=== PATIENT | male | born 1955 | race African-American/Black ===

== ENCOUNTER 2018-02-18 07:59 | Observation (INO) | payer BC, OTHER ==
[~2018-02-18] VITALS: Ht 175.3 cm; Wt 108.4 kg
[2018-02-18] VITALS (13 sets, daily range): BP systolic 130–160; BP diastolic 45–89
[2018-02-18 08:48] LABS: HEMATOCRIT 44.8 % (42.0-52.0); HEMOGLOBIN 14.9 gm/dL (14.0-18.0); MCH 29.6 pg (26.0-34.0); MCHC 33.3 g/dL (28.0-37.0); MCV 88.9 fL (80.0-100.0); MPV 8.8 fl. (7.2-11.1); RBC 5.04 mil/uL (4.50-6.00); RDW-CV 13.7 % (10.5-14.5); WBC 7.1 thou/uL (4.0-11.0)
[2018-02-18] MEDS ORDERED: NORVASC5 MG PO (08:52)
[2018-02-18] MEDS ORDERED: ADULT ASPIRIN81 MG PO (08:52)
[2018-02-18] MEDS ORDERED: ACCUNEB SO1.25 MG/1 INH (08:52)
[2018-02-18] MEDS ORDERED: MAXZIDE-25 MG1 EACH PO (08:53)
[2018-02-18] MEDS ORDERED: CRESTOR20 MG PO (08:53)
[2018-02-18] MEDS ORDERED: NORCO 5-325 TA1 EACH PO (08:53)
[2018-02-18 09:03] LABS: APTT 26.1 Seconds (25.0-31.3); PROTIME 10.4 Seconds (9.20-11.50)
[2018-02-18 09:04] LABS: ANION GAP 8 mmol/L (7-16); BUN 17 mg/dL (7-18); CHLORIDE 99 mmol/L (98-107); CO2 29 mmol/L (21-32); CREATININE 1.1 mg/dL (0.6-1.3); GLUCOSE 178 mg/dL (70-99); POTASSIUM 3.7 mmol/L (3.5-5.1); SODIUM 136 mmol/L (136-145)
[2018-02-18 09:08] LABS: ALBUMIN 4.3 g/dL (3.4-5.0); ALKALINE PHOSPHATASE 61 U/L (46-116); SGOT 20 U/L (15-37); SGPT 36 U/L (30-65); TOTAL BILIRUBIN 0.6 mg/dL (<0.1-1.0); TOTAL PROTEIN 8.3 g/dL (6.4-8.2)
[2018-02-18 09:19] LABS: CHOLESTEROL 175 mg/dL (<200); SERUM ASSESSMENT Clear; TRIGLYCERIDE 79 mg/dL (<150); VLDL 16 mg/dL (<40)
[2018-02-18 09:20] LABS: HDL CHOLESTEROL 43 mg/dL (>40); LDL CHOLESTEROL 117 mg/dL (<100); TC:HDL 4.1 Ratio (Not establshd)
--- NOTE | 2018-02-18 11:56 | EKG ---
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 02/18/18 1156 0858 John Lin MD, [facility] /EPI
--- NOTE | 2018-02-18 15:33 | EKG ---
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1955 Requested By: John Lin Order Number: [id number] Reading MD: John Lin Measurements Intervals [place] Rate: 70 P: 28 IA: 142 QRS: 66 QRSD: 88 T: -59 QT: 384 QTc: 415 Interpretive Statements Sinus rhythm Nonspecific T abnormalities, diffuse leads Compared to ECG 02/18/2018 08:58:26 T-wave abnormality now present Ventricular premature complex(es) no longer present Myocardial infarct finding no longer present Electronically Signed On 02-18-2018 15:33:24 CDT by John Lin [email or web address] <ELECTRONICALLY SIGNED> By: John Lin MD, FAC 02/18/18 1533 1413 1413 John Lin MD, FAC /EPI
--- NOTE | 2018-02-18 17:27 | CARD ---
[address] [address] CARDIAC CATH REPORT Name: YANIRA WICK Room: [address] Michel Smith#: [id number] Admission: 02/18/18 Attend Phys: John Lin MD Discharge: Date of : 53 Report #: [id number] THIS REPORT FOR: //name// APPROVED REPORT Study performed: 02/18/2018 08:59:48 Patient Details Patient Status: Out-Patient Room #: 208 The patient is a 62 year-old male Event Personnel John Lin Utility Operator, Shanda Rock Monitor, Telly Painting Scrub, Kadi Felipe RTHua Scrub, Corinne Durán RN Retail Project Merchandiser, Peter Vaca Supervisor Show Operations Procedures Performed Art Access - R radial artery , Left Heart Catheterization, Selective Right and Left Coronary Angiography, PTCA with Stenting Indication Dyspnea, Positive stress test Risk Factors Arterial Hypertension, Hypercholesterolemia Admission/Lab Medications/Medications given during procedure Heparin Unfract. Procedure Narrative The patient was brought electively to the Cardiac Catheterization Laboratory and was prepped and draped in a sterile manner. The right wrist was infiltrated with 2% Lidocaine subcutaneous anesthesia. A Slender Glidesheath sheath was inserted into the right radial artery. Coronary angiography was performed using coronary diagnostic catheters. The right coronary system was accessed and visualized with a 3DRC 6fr catheter. The left coronary system was accessed and visualized with a AL2 6fr catheter. Left ventricular/Aortic Valve gradient assessed via catheter pullback. Closure device was deployed with a 6 Fr Angioseal STS 6Fr. The patient tolerated the procedure well and there were no complications associated with the procedure. There was no hematoma. Due to the difficulty seating the catheters radialy the groin was accessed with a 6fr [place] sheath. The intervention was performed from the [facility]. Closed with [place] 6[place] [address] CARDIAC CATH REPORT Name: YANIRA WICK Room: [address] M..#: [id number] Admission: 02/18/18 Attend Phys: John Lin MD Discharge: Date of : 53 Report #: [id number] Angioseal. Intraoperative Conscious Sedation Sedation start time: 10:23 Case end Time: 12:30 Fentanyl 75 mcg Versed 4 mg Fluoro Time: 36.3 minutes Dose: DAP 350439 cGycm2 4322.18 mGy Contrast Type and Amount: Omnipaque 260 ml Coronary Angiography The patient's coronary anatomy is co- dominant. Diagnostic Cath Left Main normal LAD Proximal to mid 75% , mid 75% stenoses. Diagonal 1 small vessel 70% mid body Circumflex large vessel mid 85% stenosis,focal, involving medium sized OM OM1 small, ostial 90% OM2 medium ,ostial 60-70% OM3 large, mild 20% Right Coronary small artery, occluded mid body, collateralized from left R PDA small severe diffuse disease Left Ventriculography Left Ventriculography was not performed. Ejection Fraction was 50% based off patient's Nuclear Cardiac Stress Test. No gradient on pullback, EDP 12mmHg. Hemodynamics The aortic pressure is 100/67 mmHg with a mean of mmHg. The left ventricular pressure is 117/10 mmHg with a mean of mmHg. The left ventricular end diastolic pressure is 12 mmHg. There was no gradient across the aortic valve upon pullback. Pullback from the left ventricle to the aorta revealed no gradient across the aortic valve. PCI Technique Lesion Anticoagulation was achieved with Heparin. Patient was preloaded with Brillinta. Percutaneous coronary intervention was performed on the mid left anterior descending artery segment. The lesion stenosis prior to intervention was 80%% with DOMINICK 3 flow. A 6F XB 4.0 Guide Catheter was used to engage the LCA ostium. A IG: [facility] 190[place] [address] CARDIAC CATH REPORT Name: YANIRA WICK Room: [address] M.R.#: [id number] Admission: 02/18/18 Attend Phys: John Lin MD Discharge: Date of : 53 Report #: [id number] Interventional Guidewire was used to cross the lesion. BALLOON DILATION A Balloon catheter Trek RX 2.5 X 12 was inserted and inflated up to 10.00atm for 9seconds. Repeat angiography revealed the following post-dilatation results: 40% stenosis. STENT DEPLOYMENT A drug-eluting stent Xience Alpine RX 2.75X18 was inserted and inflated up to 10.00atm for 8seconds. Repeat angiography revealed the following post-stent deployment results: 0% stenosis. Additional Inflation: 12.00atm for 8seconds. Additional Inflation: 16.00atm for 13seconds. Final angiography reveals 0 % stenosis with DOMINICK 3 flow. PCI Technique Lesion 2 Percutaneous Coronary Intervention was performed on the proximal left anterior descending artery segment. Patient was preloaded with Brillinta. Percutaneous coronary intervention was performed on the proximal left anterior descending artery segment. The lesion stenosis prior to intervention was 70% with DOMINICK 3 flow. A 6F XB 4.0 Guide Catheter was used to engage the LCA ostium. A bmw Interventional Guidewire was used to cross the lesion. Stent Deployment A drug-eluting stent Xience Alpine RX 3.5X12 was inserted and inflated up to 9.00atm for 13seconds. Repeat angiography revealed the following post-stent deployment results: 0% stenosis. Additional Inflation: 14.00atm for 16seconds. Additional Inflation: 16.00atm for 11seconds. Final angiography reveals 0 % stenosis with DOMINICK 3 flow. PCI Technique Lesion 3 Percutaneous Coronary Intervention was performed on the mid circumflex artery segment. Patient was preloaded with Brillinta. Percutaneous coronary intervention was performed on the mid circumflex artery segment. The lesion stenosis prior to intervention was 70% with DOMINICK 3 flow. A 6F XB 4.0 Guide Catheter was used to engage the ostium. A IG: [employer] 190cm Interventional Guidewire was used to cross the lesion. Stent Deployment A drug-eluting stent Xience Alpine RX 4.0X12 was inserted and inflated up to 14.00atm for 19seconds. Repeat angiography revealed [facility] [address] [place] [address] CARDIAC CATH REPORT Name: YANIRA WICK Room: [address] Michel CatesWard#: [id number] Admission: 02/18/18 Attend Phys: John Lin MD Discharge: Date of : 53 Report #: [id number] the following post-stent deployment results: 0% stenosis. Additional Inflation: 17.00atm for 16seconds. Additional Inflation: 18.00atm for 9seconds. Post stent angiogram revealed narrowing of ostium of 3rd marginal branch that arose from within the stent consistent with plaque shift. Post Stent Deployment Balloon Dilation A Balloon catheter 2.0 x 8 mm was inserted and inflated up to 16atm for 15seconds. Repeat angiography revealed the following post-dilatation results: 0% stenosis. Final angiography reveals 0 % stenosis with DOMINICK 3 flow. Conclusion 1. Severe 3v CAD 2. Small RCA is occluded and collateralized 3. LAD has 2 serial >75% stenoses 4. LCx has focal 85% stenosis at takeoff of 3rd marginal branch 5. successful placement of drug eluting stents in the proximal lad, mid lad, and mid circumflex artery 6. plaque shift required PTCA of the ostium of the marginal branch through the circumflex stent struts Recommendations Cardiac Rehabilitation Referral Aggressive Medical Therapy Medications Administered Ticagrelor Diagnostic Cath Approved by: John Lin MD Date/Time: <ELECTRONICALLY SIGNED> By: Peter Vaca MD, [facility] 02/18/181726 26 26Peter Vaca MD, FACC /INF
[2018-02-19 00:58] VITALS: BP 137/77
[2018-02-19 03:56] VITALS: BP 123/70
[2018-02-19 05:30] LABS: HEMATOCRIT 38.1 % (42.0-52.0); MCH 29.7 pg (26.0-34.0); MCV 87.4 fL (80.0-100.0); MPV 8.8 fl. (7.2-11.1); RBC 4.35 mil/uL (4.50-6.00); RDW-CV 13.8 % (10.5-14.5); WBC 7.5 thou/uL (4.0-11.0)
[2018-02-19 05:39] LABS: HEMOGLOBIN 12.9 gm/dL (14.0-18.0)
[2018-02-19 06:12] LABS: ANION GAP 9 mmol/L (7-16); BUN 16 mg/dL (7-18); CALCIUM 8.6 mg/dL (8.5-10.1); CHLORIDE 102 mmol/L (98-107); CO2 27 mmol/L (21-32); CREATININE 1.1 mg/dL (0.6-1.3); GLUCOSE 149 mg/dL (70-99); POTASSIUM 3.8 mmol/L (3.5-5.1); SODIUM 138 mmol/L (136-145); TROPONIN-I LEVEL <0.06 ng/mL (<0.06)
[2018-02-19 08:00] VITALS: BP 132/81
--- NOTE | 2018-02-19 10:18 | EKG ---
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: : 1955 Requested By: John Lin Order Number: [id number] Reading MD: Peter Vaca Measurements Intervals [place] Rate: 74 P: 17 VT: 138 QRS: 61 QRSD: 93 T: -74 QT: 379 QTc: 421 Interpretive Statements Sinus rhythm Inferior infarct, age indeterminate Lateral leads are also involved Compared to ECG 02/18/2018 14:13:40 no change Electronically Signed On 02-19-2018 10:18:29 CDT by Peter Vaca [email or web address] <ELECTRONICALLY SIGNED> By: Peter Vaca MD, [facility] 02/19/18 1018 1 1 Peter Vaca MD, [facility] /EPI
[2018-02-19 12:11] VITALS: BP 140/67
[2018-02-19 12:36] VITALS: BP 153/85
[2018-02-19] MEDS ORDERED: BRILINTA90 MG PO (15:13)
[2018-02-19] MEDS ORDERED: NITROGLYCERIN0.4 MG SUBLING (15:21)
[2018-02-19] MEDS ORDERED: DYAZIDE 37.5-21 EACH PO (15:22)
--- NOTE | 2018-02-23 15:12 | SHORT ---
[address] [address] SHORT STAY SUMMARY Name: YANIRA WICK Room: [address] Michel Smith#: [id number] Admission: 02/18/18 Attend Phys: John Lin MD Discharge: 02/19/18 Date of : 53 Report #: [id number] THIS REPORT FOR: //name// CC: [facility] physician/PCP John Shetty MD DATE OF SERVICE: 02/19/2018 DISCHARGE DIAGNOSES: 1. Coronary artery disease. 2. Hypertension. 3. Hyperlipidemia. CONSULTANTS: None. PROCEDURES: Left heart catheterization with placement of drug-eluting stents in the LAD and circumflex artery via the femoral approach. HISTORY OF PRESENT ILLNESS: The patient is a 62-year-old black male who was brought to the outpatient department to undergo cardiac catheterization. The patient had no previous history of heart disease. Recently, he went in for his routine physical. He did note some shortness of breath. He had 1 episode of chest tightness. He was noted to have an abnormal ECG and his primary care physician ordered a nuclear stress test. This showed a fixed inferior defect. Echocardiogram apparently showed normal left ventricular function. He was referred to my partner, Dr. Lin in the Cardiology Clinic in [facility]. Because of risk factors and abnormal nuclear stress test, Dr. Lin recommended cardiac catheterization. PAST MEDICAL HISTORY: Otherwise significant for carpal tunnel surgery, hypertension, hyperlipidemia. MEDICATIONS ON ADMISSION: Included ProAir inhaler for asthma, amlodipine 5 mg a day for hypertension, aspirin 81 mg a day. He was recently switched from Lipitor to Crestor and he takes Maxzide. ALLERGIES: He has no known drug allergies. PHYSICAL EXAMINATION: GENERAL: Revealed a middle-aged black male. VITAL SIGNS: Blood pressure 140/80, pulse 80. CHEST: Clear to auscultation. CARDIAC: Regular rate and rhythm. EXTREMITIES: No edema. SKIN: [place] [address] SHORT STAY SUMMARY Name: YANIRA WICK [address] [id number] Admission: 02/18/18 Attend Phys: John Lin MD Discharge: 02/19/18 Date of : 53 Report #: [id number] His ECG showed a sinus rhythm, occasional PVC, small inferior Q-waves, nonspecific T-wave changes. LABORATORY WORK: Sodium 138, creatinine 1.1, glucose 149. His cholesterol 175, triglycerides 79, HDL 43, LDL 117. White blood cell count 7.1, hemoglobin 14.9. HOSPITAL COURSE: The patient was brought to the outpatient department. He underwent a coronary angiography by my partner, Dr. Lin from the right radial artery. He was noted to have a tortuous aorta and the angiogram from the right radial artery was difficult. He was found to have chronic occlusion of the right coronary artery that filled by collaterals. There was a 70% narrowing of the proximal LAD, 80% narrowing of the mid LAD. The mid circumflex had a discrete 70% stenosis at the takeoff of the third marginal branch. No ventriculogram was performed. He was given heparin and loaded with Brilinta. I then placed drug-eluting stents in the proximal LAD, mid LAD and mid circumflex. I did have to perform balloon angioplasty of the third marginal branch through the stent because of plaque shift. He tolerated the procedure well and a Vasc band was placed over the right radial artery. The stents were placed on the right femoral artery because of tortuosity of the aorta. He had an Angio-Seal placed in the right femoral artery. Prior to discharge, his family had no further complaints. There was no hematoma in the wrist or the right femoral artery. DISCHARGE MEDICATIONS: He was discharged on his home medications that consisted of albuterol inhaler, amlodipine 5 mg a day, aspirin 81 mg a day, Crestor 20 mg a day, Dyazide 1 a day. In addition, he was started on Brilinta 90 mg twice a day and he was given nitroglycerin to take as needed for chest pain. He was discharged to return to care of Dr. Shetty for routine medical care. He is scheduled to return to see my partner, Dr. Lin in the Cardiology Clinic in 6 weeks. He is felt to have a good prognosis from cardiac standpoint. The results of the hospitalization were discussed with the patient. He is felt to have severe multivessel coronary artery disease, but really no history of angina. I did recommend he start an exercise program, maintain a low-fat diet. In addition, he appears to have glucose intolerance. <ELECTRONICALLY SIGNED> By: Peter Vaca MD, [facility] 02/23/18 1512 1505 1530Damaryan Vaca MD, FAC /nt
== END 2018-02-19 15:30 | disposition home or self-care (01) ==
LOC: M.CL 07:59 → M.2W 13:25 → M.TBA-CV 13:25 → M.2W 13:29
PROVIDERS: ADMIT Internal Medicine Cardiovascular Disease
DX: I25.10 Atherosclerotic heart disease of native coronary artery without angina pectoris (principal); I10 Essential (primary) hypertension; E78.5 Hyperlipidemia, unspecified; Z98.890 Other specified postprocedural states